=== PATIENT | female | born 2000 | race American Indian/Alaskan Native ===

== ENCOUNTER 2021-12-31 20:33 | Emergency (ER) | payer SELFPAY | END 2021-12-31 21:31 | disposition left against medical advice (07) | LOC: ED 20:33 | DX: R10.9 Unspecified abdominal pain (principal); R51.9 Headache, unspecified; Z53.21 Procedure and treatment not carried out due to patient leaving prior to being seen by health care provider ==

== ENCOUNTER 2022-03-26 16:15 | Emergency (ER) | payer MEDICAID ==
[2022-03-26 18:24] VITALS: BP 129/84
[2022-03-26 19:11] LABS: Bilirubin,Urine NEG (Negative); Blood,Urine NEG (Negative); Color,Urine Yellow (Yellow)
[2022-03-26 19:15] LABS: Mucus,Urine 3+ /HPF
[2022-03-26 19:18] LABS: HCG Qualitative,Urine Positive (Negative)
== END 2022-03-26 23:47 | disposition left against medical advice (07) ==
LOC: ED 16:15
DX: R10.9 Unspecified abdominal pain (principal); Z53.21 Procedure and treatment not carried out due to patient leaving prior to being seen by health care provider
CPT/HCPCS: 81001; 81025; 87086

== ENCOUNTER 2022-05-24 12:14 | Emergency (ER) | payer MEDICAID ==
[2022-05-24 19:45] VITALS: BP 109/73
[2022-05-24] MEDS ORDERED: ACETAMINOPHEN 325 MG TAB PO ONE (21:56)
[2022-05-24] MEDS ORDERED: cephALEXin 500 MG CAP PO ONE (21:56)
--- NOTE | 2022-05-24 22:12 | Emergency Department Report ---
ED Female HPI - General Chief complaint: Urogenital-Female Stated complaint: PELVIC PAIN , POSS CYST Time Seen by Provider: 05/24/22 21:55 Source: patient Mode of arrival: Ambulatory Limitations: No Limitations - History of Present Illness Initial comments: Is a 22-year-old female G5, P3, A1, who presents with pelvic pain and bilateral for 3 days. Patient states history of ovarian cyst. Last menstrual cycle 2 months ago. Patient denies fevers or chills no nausea no vomiting. There is some abdominal cramping and back pain. She has not taken home test. Patient denies vaginal discharge no abnormal vaginal bleeding. Patient denies concern for STI. MD Complaint: pelvic pain - Related Data Previous Rx's Medication Instructions Recorded Last Taken Type cephALEXin [Keflex] 500 mg PO BID 7 Days #14 cap 05/25/22 Unknown Rx Allergies Allergy/AdvReac Type Severity Reaction Status Date / Time Penicillins Allergy Rash Verified 03/26/22 18:25 ED Review of Systems ROS: Stated complaint: PELVIC PAIN , POSS CYST Other details as noted in HPI Constitutional: denies: chills, fever Eyes: denies: eye pain, eye discharge, vision change ENT: denies: ear pain, throat pain Respiratory: denies: cough, shortness of breath, wheezing Cardiovascular: denies: chest pain, palpitations Endocrine: no symptoms reported Gastrointestinal: abdominal pain. denies: nausea, vomiting, diarrhea, constipation, melena Genitourinary: denies: urgency, dysuria, frequency, hematuria, discharge, abnormal menses Musculoskeletal: denies: back pain, joint swelling, arthralgia Skin: denies: rash, lesions Neurological: denies: headache, weakness, paresthesias, vertigo Psychiatric: denies: anxiety, depression Hematological/Lymphatic: denies: easy bleeding, easy bruising ED Past Medical Hx - Past Medical History Previous Medical History?: Yes Additional medical history: ovarian cyst - Surgical History Past Surgical History?: No - Social History Smoking Status: Never Smoker - Medications Home Medications: Home Medications Medication Instructions Recorded Confirmed Last Taken Type cephALEXin [Keflex] 500 mg PO BID 7 Days #14 cap 05/25/22 Unknown Rx ED Physical Exam - General Limitations: No Limitations General appearance: alert, in no apparent distress - Head Head exam: Present: normocephalic, normal inspection - Eye Eye exam: Present: normal appearance, PERRL, EOMI Pupils: Present: normal accommodation - ENT ENT exam: Present: mucous membranes moist - Neck Neck exam: Present: normal inspection, full ROM. Absent: tenderness - Respiratory Respiratory exam: Present: normal lung sounds bilaterally. Absent: respiratory distress, wheezes - Cardiovascular Cardiovascular Exam: Present: regular rate, normal rhythm, normal heart sounds. Absent: systolic murmur, diastolic murmur, rubs, gallop - GI/Abdominal GI/Abdominal exam: Present: soft, normal bowel sounds. Absent: distended, tenderness - Rectal Rectal exam: Absent: deferred - External exam: Present: other (Deferred per patient) - Extremities Exam Extremities exam: Present: normal inspection, full ROM, normal capillary refill. Absent: tenderness, pedal edema - Back Exam Back exam: Present: normal inspection, full ROM. Absent: tenderness, CVA tenderness (R), CVA tenderness (L) - Neurological Exam Neurological exam: Present: alert, oriented X3, CN II-XII intact, normal gait - Expanded Neurological Exam Expanded Patient oriented to: Present: person, place, time Speech: Present: fluid speech Motor strength exam: RUE: 5, LUE: 5, RLE: 5, LLE: 5 Best Eye Response ([place]): (4) open spontaneously Best Motor Response ([place]): (6) obeys commands Best Verbal Response ([place]): (5) oriented [place] Total: 15 - Psychiatric Psychiatric exam: Present: normal affect, normal mood - Skin Skin exam: Present: warm, dry, intact, normal color. Absent: rash ED Course Vital Signs 05/24/22 05/24/22 13:01 19:45 Temperature 98.5 F 98.7 F Pulse Rate 80 89 Respiratory 18 16 Rate Blood Pressure 109/73 Blood Pressure 114/70 [Right] O2 Sat by Pulse 100 100 Oximetry ED Medical Decision Making - Radiology Data Radiology results: report reviewed, image reviewed ULTRASOUND OBSTETRIC INDICATION / CLINICAL INFORMATION: abd pain pos preg. Clinical Gestational Age (GA) in weeks, days: 14 weeks TECHNIQUE: Transabdominal. COMPARISON: None available. FINDINGS: GESTATIONAL SAC: Well-defined oval shape and intrauterine in location. YOLK SAC: No significant abnormality. EMBRYO/FETUS: No significant abnormality. - [place]-Rump Length = 6.35 cm = 12 weeks, 5 days - Heart Rate, beats per minute (if present) = 168 ADNEXA: No significant abnormality. Both ovaries well-visualized and unremarkable. FREE FLUID: None. ADDITIONAL FINDINGS: None. IMPRESSION: 1. Single, living intrauterine with estimated sonographic age of 12 weeks, 5 days. Signer Name: Anna Dunbar MD Signed: 05/24/2022 11:53 PM Workstation Name: [id number] Transcribed By: JR Dictated By: Anna Dunbar MD Electronically Authenticated By: Anna Dubnar MD Signed Date/Time: 05/24/222352 DD/ 50 TD/TT: - Medical Decision Making Ultrasound OB Single, living intrauterine with estimated sonographic age of 12 weeks, 5 days., heart rate 168 bpm, urine noted as above plan treat for UTI, follow-up with [facility] in 2 to 3 days. Return to emergency department should symptoms worsen. Patient verbalized agreement and understanding with discharge plan. Patient DC'd home in stable condition at this time. Critical care attestation.: If time is entered above; I have spent that time in minutes in the direct care of this critically ill patient, excluding procedure time. ED Disposition Clinical Impression: Abdominal pain during in first trimester Qualifiers: Weeks of gestation: 12 weeks Qualified Code(s): Z3A.12 - 12 weeks gestation of UTI (urinary tract infection) during Qualifiers: Trimester: first trimester Qualified Code(s): O23.41 - Unspecified infection of urinary tract in , first trimester Disposition: 01 HOME / SELF CARE / HOMELESS Is pt being admited?: No Does the pt Need Aspirin: No Condition: Stable Instructions: First Trimester of , [id number], and Urinary Tract Infection Additional Instructions: You are 12 weeks , take medications as prescribed, follow-up with your [facility] in 2-3 days. Return to emergency department should symptoms worsen Prescriptions: cephALEXin [Keflex] 500 mg PO BID 7 Days #14 cap Referrals: LES CURRY MD [Primary Care Provider] - 3-5 Days Forms: Work/School Release Form(ED) Time of Disposition: 00:40
--- NOTE | 2022-05-24 23:57 | Ultrasound Report ---
ULTRASOUND OBSTETRIC INDICATION / CLINICAL INFORMATION: abd pain pos preg. Clinical Gestational Age (GA) in weeks, days: 14 weeks TECHNIQUE: Transabdominal. COMPARISON: None available. FINDINGS: GESTATIONAL SAC: Well-defined oval shape and intrauterine in location. YOLK SAC: No significant abnormality. EMBRYO/FETUS: No significant abnormality. - [place]-Rump Length = 6.35 cm = 12 weeks, 5 days - Heart Rate, beats per minute (if present) = 168 ADNEXA: No significant abnormality. Both ovaries well-visualized and unremarkable. FREE FLUID: None. ADDITIONAL FINDINGS: None. IMPRESSION: 1. Single, living intrauterine with estimated sonographic age of 12 weeks, 5 days. Signer Name: Anna Dunbar MD Signed: 05/24/2022 11:53 PM Workstation Name: [id number]
== END 2022-05-25 00:46 | disposition home or self-care (01) ==
LOC: ED 12:14
DX: O23.41 Unspecified infection of urinary tract in pregnancy, first trimester (principal); N39.0 Urinary tract infection, site not specified; R10.9 Unspecified abdominal pain; Z3A.12 12 weeks gestation of pregnancy; Z88.0 Allergy status to penicillin
CPT/HCPCS: 36415; 76801; 84702; 99284